=== PATIENT | male | born 1990 | race Two or more races ===

== ENCOUNTER 2022-08-18 01:36 | Emergency (ER) | payer SELFPAY ==
[~2022-08-18] VITALS: Ht 165.1 cm; Wt 68.0 kg
--- NOTE | 2022-08-18 01:39 | NUR ---
[id number] FROM HOME POSSIBLE FENTANYL INGESTION, VOMITED, ALERT/AWAKE. TOLERATING R/A WELL WITH NO RESP DISTRESS.CONNECTED PT TO POX AND MONTIOR. SAFETY MEASURES IN PLACE.
[2022-08-18] MEDS ORDERED: ONDANSETRON 4 MG TAB.RAPDIS ONE (01:51)
[2022-08-18] MEDS ORDERED: ONDANSETRON 4 MG TAB.RAPDIS SL ONE (02:00)
[2022-08-18] MEDS ORDERED: NALO1DIS2 IM (02:10)
[2022-08-18 04:14] VITALS: BP 132/71
== END 2022-08-18 04:14 | disposition home or self-care (01) ==
LOC: ER 01:38 → EDBD 01:38 → ER 04:14
DX: F11.10 Opioid abuse, uncomplicated (principal)
CPT/HCPCS: 99283; 71045; Q0162